=== PATIENT | female | born 1955 | race Caucasian/White ===

== ENCOUNTER 2018-09-11 08:34 | Inpatient (IN) | payer OTHER, SELFPAY ==
[~2018-09-11] VITALS: Ht 170.2 cm; Wt 72.0 kg
--- NOTE | 2018-09-11 08:50 | NUR ---
PATIENT PRESENTS TO ED TODAY FOR LT FLANK PAIN WITH N/V, DENIES DIARRHEA STARTING LAST NIGHT. AWAITING MD ORDERS, CALL LIGHT WITHIN REACH.
[2018-09-11] MEDS ORDERED: SODIUM CHLORIDE FLUSH 10ML SYR IVF ONE (09:00)
[2018-09-11] MEDS ORDERED: ONDANSETRON 2MG/ML, 2ML IVPush ONE (09:00)
[2018-09-11] MEDS ORDERED: MORPHINE SULFATE 4 MG/ML, 1ML ONE ×2 (09:04→09:28)
[2018-09-11] MEDS ORDERED: ONDANSETRON 2MG/ML, 2ML ONE ×2 (09:04→17:08)
[2018-09-11] MEDS: MORPHINE SULFATE 4 MG/ML, 1ML IVPush PRN ×2 (09:06→09:29)
[2018-09-11 09:09] LABS: BASOPHILS # (AUTO) 0.02 x10^3/uL (0-0.1); BASOPHILS % (AUTO) 1 % (0-1); EOSINOPHILS # (AUTO) 0.07 x10^3/uL (0-0.4); EOSINOPHILS % (AUTO) 1 % (1-7); LYMPHOCYTES # (AUTO) 1.68 x10^3/uL (1-3.4); LYMPHOCYTES % (AUTO) 31 % (22-44); MD NO; MEAN CORPUSCULAR HEMOGLOBIN 32.5 pg (27.0-34.8); MEAN CORPUSCULAR HGB CONC 33.2 g/dL (32.4-35.8); MEAN CORPUSCULAR VOLUME 97.8 fL (80-100); MEAN PLATELET VOLUME 7.7 fL (7.4-10.4); MONOCYTES # (AUTO) 0.41 x10^3/uL (0.2-0.8); MONOCYTES % (AUTO) 8 % (2-9); NEUTROPHILS # (AUTO) 3.25 x10^3/uL (1.8-6.8); NEUTROPHILS % (AUTO) 60 % (42-75); PLATELET COUNT 255 x10^3/uL (130-400); RED BLOOD COUNT 4.52 x10^6/uL (3.82-5.3)
[2018-09-11 09:21] LABS: ALANINE AMINOTRANSFERASE 26 U/L (12-78); ALBUMIN 4.2 g/dL (3.4-5.0); ANION GAP 11 mmol/L (5-15); CALCIUM 9.2 mg/dL (8.5-10.1); CHLORIDE 110 mmol/L (98-107); CREATININE 1.08 mg/dL (0.55-1.02)
--- NOTE | 2018-09-11 09:21 | NUR ---
PATIENT IN CT.
[2018-09-11 09:23] LABS: ALKALINE PHOSPHATASE 77 U/L (45-117); BILIRUBIN,TOTAL 0.5 mg/dL (0.2-1.0); TOTAL PROTEIN 7.5 g/dL (6.4-8.2)
--- NOTE | 2018-09-11 09:29 | NUR ---
PATIENT UNABLE TO GET UP TO URINATE DUE TO PAIN AT THIS TIME, UNABLE TO COLLECT URINE FOR UA. PATIENT REPORTS PAIN WENT FROM 20/10 TO 8/10 POST MORPHINE ADMINISTRATION, STATING "PAIN IS COMING BACK FAST". PATIENT SITTING RESTLESS IN GURNEY, SECOND MORPHINE ADMINISTERED PER ORDER. FAMILY AT BEDSIDE, AWAITING RESULTS. [id number].
--- NOTE | 2018-09-11 09:36 | NUR ---
PATIENT DROPPING TO 82% RA, SUPPLEMENTAL O2 APPLIED, NOW 97% 2L NC. PATIENT SITTING MORE COMFORTABLY IN [facility] AT THIS TIME.
--- NOTE | 2018-09-11 10:00 | NUR ---
RECEIVECD REPORT FROM BOBBI LYN. PT AWARE OF NEED FOR UA.
--- NOTE | 2018-09-11 10:15 | NUR ---
PT ATTEMPTED TO GET UP FOR UA BUT BUT REPORTS FEELING TOO DIZZY. COOKIE THORNE AWARE AND STRAIGHT CATH TO BE DONE.
--- NOTE | 2018-09-11 10:30 | NUR ---
UA COLLECTED AND SENT TO THE LAB. PT DID NOT WANT STRAIGHT CATH. PT ASSISTED TO BEDSIDE COMMODE FOR UA.
[2018-09-11 10:48] LABS: MICROSCOPIC AUTO
[2018-09-11 11:02] LABS: CULTURE INDICATED? NO
[2018-09-11] MEDS ORDERED: KETOROLAC 30 MG/1 ML ONE (11:19)
[2018-09-11] MEDS ORDERED: METOCLOPRAMIDE 5 MG/ML, 2ML ONE (11:19)
--- NOTE | 2018-09-11 11:25 | NUR ---
PT REMEDICATED FOR PAIN AND NAUSEA. PT REPORTS SHE FEELS OK AT THE MOMENT BUT PAIN AND NAUSEA IS WAXING AND WANING.
[2018-09-11] MEDS ORDERED: KETOROLAC 30 MG/1 ML IVPush ONE (11:30)
[2018-09-11] MEDS ORDERED: SODIUM CHLORIDE 0.9% 1,000ML IVBOLUS ONE (11:30)
[2018-09-11] MEDS ORDERED: METOCLOPRAMIDE 5 MG/ML, 2ML IVPush ONE (11:30)
[2018-09-11 13:10] VITALS: BP 113/70
[2018-09-11] MEDS ORDERED: KETOROLAC 30 MG/1 ML IV PRN (13:30)
[2018-09-11] MEDS ORDERED: PROMETHAZINE 25 MG/ML, 1ML IM PRN (13:30)
[2018-09-11] MEDS ORDERED: morphine SULFATE 10 MG/ML, 1ML IVPush PRN (13:30)
[2018-09-11] MEDS: SODIUM CHLORIDE 0.9% 1,000 ML IV SCH ×2 (13:46→20:31)
[2018-09-11] MEDS ORDERED: FENTANYL PF 250 MCG/5ML ONE (15:53)
[2018-09-11] MEDS ORDERED: MIDAZOLAM 1 MG/ML, 2ML ONE (15:53)
[2018-09-11] MEDS ORDERED: ONDANSETRON ODT 8 MG PO PRN (17:00)
[2018-09-11] MEDS ORDERED: OXYcodone 5 MG/5 ML ORAL.SOL UDC PO PRN (17:00)
[2018-09-11] MEDS ORDERED: PROMETHAZINE 25 MG/ML, 1ML IV PRN (17:00)
[2018-09-11] MEDS ORDERED: HYDROmorphone 2 MG/ML, 1ML IVPush PRN (17:00)
[2018-09-11] MEDS ORDERED: ONDANSETRON 2MG/ML, 2ML IV PRN (17:00)
[2018-09-11] MEDS ORDERED: ACETAMINOPHEN 325 MG TABLET PO PRN (17:00)
[2018-09-11] MEDS ORDERED: FENTANYL PF 100 MCG/2ML IV PRN (17:00)
[2018-09-11] MEDS ORDERED: CEFAZOLIN 1,000 MG ONE (17:08)
[2018-09-11] MEDS ORDERED: PROPOFOL 10 MG/ML, 20ML ONE (17:08)
[2018-09-11] MEDS ORDERED: NEOSTIGMINE 1 MG/ML, 10ML ONE (17:08)
[2018-09-11] MEDS ORDERED: DEXAMETHASONE 4 MG/ML, 1ML ONE (17:08)
[2018-09-11] MEDS ORDERED: SUCCINYLCHOLINE 20 MG/ML, 10ML ONE (17:08)
[2018-09-11] MEDS ORDERED: GLYCOPYRROLATE 0.2MG/1ML, 5ML ONE (17:08)
[2018-09-11] MEDS ORDERED: ROCURONIUM 10MG/ML,5ML ONE (17:08)
[2018-09-11 19:34] VITALS: BP 113/73
[2018-09-11] MEDS: FAMOTIDINE 20 MG/2 ML IVPush SCH (20:31)
[2018-09-11 22:08] VITALS: BP 98/63
[2018-09-12 01:51] VITALS: BP 98/59
[2018-09-12] MEDS: SODIUM CHLORIDE 0.9% 1,000 ML IV SCH ×2 (02:10→09:06)
[2018-09-12 07:04] VITALS: BP 96/58
[2018-09-12 07:07] LABS: ALBUMIN 3.4 g/dL (3.4-5.0); ANION GAP 6 mmol/L (5-15); CALCIUM 8.4 mg/dL (8.5-10.1); CHLORIDE 112 mmol/L (98-107)
[2018-09-12 07:11] LABS: MEAN CORPUSCULAR HEMOGLOBIN 32.1 pg (27.0-34.8); MEAN CORPUSCULAR HGB CONC 32.3 g/dL (32.4-35.8); MEAN CORPUSCULAR VOLUME 99.3 fL (80-100); MEAN PLATELET VOLUME 8.3 fL (7.4-10.4); PLATELET COUNT 198 x10^3/uL (130-400); RED BLOOD COUNT 3.85 x10^6/uL (3.82-5.3); RED CELL DISTRIBUTION WIDTH 14.4 % (9.6-15.2)
[2018-09-12 07:12] LABS: ALANINE AMINOTRANSFERASE 23 U/L (12-78); ALKALINE PHOSPHATASE 66 U/L (45-117); BILIRUBIN,TOTAL 1.4 mg/dL (0.2-1.0); TOTAL PROTEIN 6.3 g/dL (6.4-8.2)
[2018-09-12 07:43] LABS: BASOPHILS % (AUTO) 0 % (0-1); EOSINOPHILS % (AUTO) 0 % (1-7); LYMPHOCYTES % (AUTO) 10 % (22-44); MD SCAN; MONOCYTES # (AUTO) 0.59 x10^3/uL (0.2-0.8); MONOCYTES % (AUTO) 6 % (2-9); NEUTROPHILS # (AUTO) 8.42 x10^3/uL (1.8-6.8); NEUTROPHILS % (AUTO) 84 % (42-75)
[2018-09-12] MEDS ORDERED: TAMSULOSIN 0.4 MG CAP.ER.24H PO SCH (09:00)
[2018-09-12] MEDS: FAMOTIDINE 20 MG/2 ML IVPush SCH (09:00)
[2018-09-12 13:15] VITALS: BP 95/57
[2018-09-12] MEDS ORDERED: Tamsulosin PO (13:31)
== END 2018-09-12 14:25 | disposition home or self-care (01) | DRG 661 ==
LOC: ED 10:39 → EDIP 11:25 → 3NE 12:36 → DCLOUNGE 09-12 14:12
PROVIDERS: ADMIT Internal Medicine; ATTEND Internal Medicine
PROC: 0T778DZ Dilation of Left Ureter with Intraluminal Device, Via Natural or Artificial Opening Endoscopic (ICD-10-PCS; 2018-09-11)
PROC: 0TC78ZZ Extirpation of Matter from Left Ureter, Via Natural or Artificial Opening Endoscopic (ICD-10-PCS; principal; 2018-09-11 15:30)
DX: N13.2 Hydronephrosis with renal and ureteral calculous obstruction (principal); Z83.3 Family history of diabetes mellitus; Z91.018 Allergy to other foods; Z86.711 Personal history of pulmonary embolism
CPT/HCPCS: 36415; 74018; 74176; 76000; 80053; 81001; 83690; 85025; 96374; 96375; 96376; G0378; J0690; J1100; J1885; J2250; J2405; J2550; J2704; J2710; J3010; C1758; C1769; C2617; J0330; J2270; J2765; J7030